=== PATIENT | male | born 2000 ===

== ENCOUNTER 2024-06-10 21:01 | Emergency (ER) | payer OTHER ==
[~2024-06-10] VITALS: Ht 172.7 cm; Wt 74.8 kg
[2024-06-10 21:24] LABS: BASOPHILS # (AUTO) 0.1 K/UL (0.0-0.2); BASOPHILS % (AUTO) 0.8 % (0.0-2.0); EOSINOPHILS # (AUTO) 0.2 K/uL (0.0-0.7); EOSINOPHILS % (AUTO) 2.1 % (0.0-7.0); HEMOGLOBIN 14.8 g/dL (12.5-16.3); LYMPHOCYTES # (AUTO) 1.8 K/uL (0.8-4.8); LYMPHOCYTES % (AUTO) 22.3 % (20.5-51.5); MEAN CORPUSCULAR HGB CONC 34 g/dL (32.5-36.3); MEAN CORPUSCULAR VOLUME 84.4 fL (73.0-96.2); MONOCYTES # (AUTO) 0.7 K/uL (0.1-1.30); MONOCYTES % (AUTO) 9.3 % (0.0-11.0); NEUTROPHILS # (AUTO) 5.2 K/uL (1.8-8.9); NEUTROPHILS % (AUTO) 65.5 % (38.5-71.5); PLATELET COUNT (AUTO) 259 K/uL (152-348); RED BLOOD CELL COUNT(AUTO) 5.09 MIL/uL (4.06-5.63); RED CELL DISTRIBUTION WIDTH 13.5 % (12.1-16.2); WHITE BLOOD COUNT (AUTO) 7.9 K/uL (3.6-10.2)
[2024-06-10] MEDS ORDERED: ACETAMINOPHEN 500 MG TABLET ONE (21:31)
[2024-06-10] MEDS ORDERED: LORAZEPAM 0.5 MG TABLET ONE (21:32)
[2024-06-10] MEDS: LORAZEPAM 0.5 MG TABLET PO ONE (21:34)
[2024-06-10] MEDS: ACETAMINOPHEN 500 MG TABLET PO ONE (21:35)
[2024-06-10 21:37] LABS: CREATININE 0.9 mg/dL (0.6-1.3); POTASSIUM 3.9 mmol/L (3.5-5.1)
[2024-06-10 21:48] LABS: BILIRUBIN,DIRECT 0.1 mg/dL (0.0-0.2); BILIRUBIN,TOTAL 0.4 mg/dL (0.2-1.0); TOTAL PROTEIN, SERUM 7.4 g/dL (6.4-8.2)
[2024-06-10 23:11] VITALS: BP 129/81; O2SAT 97
== END 2024-06-10 22:38 | disposition home or self-care (01) ==
LOC: ER 21:09
DX: R55 Syncope and collapse (principal); F41.9 Anxiety disorder, unspecified; J45.909 Unspecified asthma, uncomplicated
CPT/HCPCS: 36415; 84484; 85025; A4606; A4663; A9150